=== PATIENT | female | born 1985 | race Caucasian/White ===

== ENCOUNTER → 2020-11-17 13:34 | Observation (INO) ==
[2020-11-17 14:56] LABS: Candida DNA Not Detected (Not Detect); Gardnerella DNA Not Detected (Not Detect); Trichomonas DNA Not Detected (Not Detect)
== END | disposition home or self-care (01) ==
LOC: 1NENULAB
PROVIDERS: ADMIT Obstetrics & Gynecology; ATTEND Obstetrics & Gynecology

== ENCOUNTER 2021-01-17 09:32 | Inpatient (IN) ==
[2021-01-17] MEDS ORDERED: Oxytocin 20 units/ LR 1000 mL 20 UNIT/1,000 ML BAG IVC ONE (09:48)
[2021-01-17] MEDS ORDERED: CeFAZolin 2,000 MG/120 ML BAG IVPB ONE (09:48)
[2021-01-17] MEDS ORDERED: Famotidine 20 MG/2 ML VIAL IVP ONE (09:48)
[2021-01-17] MEDS ORDERED: Metoclopramide 10 MG/2 ML VIAL IVP ONE (09:48)
[2021-01-17] MEDS ORDERED: Ringers Solution, Lactated 1,000 ML IVC ONE (09:48)
[2021-01-17] MEDS ORDERED: Naloxone 0.4 MG/ML INJ IVP PRN (09:50)
[2021-01-17 10:37] LABS: Basophils % 0.2 %; Eosinophils % 0.4 %; Hemoglobin 14.4 g/dL (11.5-15.4); Immature Granulocytes % 0.3 % (0-4); Lymphocytes # 1.7 K/mcL (0.6-4.6); Lymphocytes % 16.7 %; Mean Corpuscular HGB Conc 33.5 g/dL (31.6-35.5); Mean Corpuscular Hemoglobin 31.2 pg (28.0-33.3); Mean Corpuscular Volume 93.1 fL (83.0-100.0); Mean Platelet Volume 10.7 fL (9.4-12.4); Monocytes # 0.4 K/mcL (0.0-1.3); Monocytes % 3.3 %; Neutrophils # 8.3 K/mcL (1.6-8.9); Platelet Count 181 K/mcL (140-400); Red Blood Count 4.62 M/mcL (3.82-4.97); Red Cell Distribution Width 13.5 % (11.5-14.5); Segmented Neutrophils % 79.1 %; White Blood Count 10.5 K/mcL (4.3-11.1)
[2021-01-17 11:10] LABS: Influenza A PCR Negative (Negative); Influenza B PCR Negative (Negative); Resp. Syncytial Virus PCR Negative (Negative)
[2021-01-17] MEDS ORDERED: *HR* Morphine Sulfate/PF 10 MG/10 ML AMPUL ONE (11:37)
[2021-01-17] MEDS ORDERED: Ondansetron 4 MG/2 ML VIAL ONE (11:37)
[2021-01-17] MEDS ORDERED: *HR* FentaNYL (PF) 100 MCG/2 ML VIAL ONE (11:37)
[2021-01-17 11:58] LABS: SARS-CoV-2 by PCR (In House) Negative (Negative)
[2021-01-17 12:02] LABS: Amphetamine Screen,Urine Negative ng/mL (Cutoff=1000); Barbiturate Screen,Urine Negative ng/mL (Cutoff=200); Benzodiazepines Screen,Urine Negative ng/mL (Cutoff=200); Cannabinoid Screen,Urine Negative ng/mL (Cutoff = 50); Cocaine Screen,Urine Negative ng/mL (Cutoff= 300); Opiate Screen,Urine Negative ng/mL (Cutoff=300); Phencyclidine Screen,Urine Negative ng/mL (Cutoff=25)
[2021-01-17] MEDS ORDERED: Acetaminophen IV 1,000 MG/100 ML BAG IVPB ONE (12:38)
[2021-01-17] MEDS ORDERED: Ketorolac 30 MG/ML VIAL ONE (13:05)
[2021-01-17] MEDS ORDERED: *HR* Nalbuphine 10 MG/ML AMPUL IV PRN (14:58)
[2021-01-17] MEDS ORDERED: Simethicone 80 MG TAB.CHEW PO PRN (16:09)
[2021-01-17] MEDS ORDERED: Metoclopramide 10 MG/2 ML VIAL IVP PRN (16:09)
[2021-01-17] MEDS ORDERED: Ondansetron 4 MG/2 ML VIAL IVP PRN (16:09)
[2021-01-17] MEDS ORDERED: Oxytocin 20 units/ LR 1000 mL 20 UNIT/1,000 ML BAG IVC SCH (16:09)
[2021-01-17] MEDS ORDERED: 0.9 % Sodium Chloride 1,000 ML IVC SCH (16:09)
[2021-01-17] MEDS: Ibuprofen 600 MG TABLET PO SCH (17:45)
[2021-01-17] MEDS: Acetaminophen 325 MG TABLET PO SCH (17:45)
[2021-01-17] MEDS: *HR* OxyCODONE Immed Rel 5 MG TABLET PO PRN (23:00)
[2021-01-18] MEDS: Ibuprofen 600 MG TABLET PO SCH ×5 (01:00→23:50)
[2021-01-18] MEDS: Acetaminophen 325 MG TABLET PO SCH ×5 (01:00→23:50)
[2021-01-18] MEDS: *HR* OxyCODONE Immed Rel 5 MG TABLET PO PRN ×4 (03:11→21:38)
[2021-01-18 03:36] LABS: Basophils % 0.2 %; Eosinophils # 0.1 K/mcL (0.0-0.6); Eosinophils % 0.7 %; Hematocrit 34.7 % (35.3-44.9); Immature Granulocytes % 0.3 % (0-4); Lymphocytes # 1.9 K/mcL (0.6-4.6); Lymphocytes % 21.8 %; Mean Corpuscular HGB Conc 32.3 g/dL (31.6-35.5); Mean Corpuscular Hemoglobin 30.7 pg (28.0-33.3); Mean Corpuscular Volume 95.1 fL (83.0-100.0); Mean Platelet Volume 10.7 fL (9.4-12.4); Monocytes # 0.4 K/mcL (0.0-1.3); Monocytes % 4.4 %; Neutrophils # 6.4 K/mcL (1.6-8.9); Platelet Count 153 K/mcL (140-400); Red Blood Count 3.65 M/mcL (3.82-4.97); Red Cell Distribution Width 13.3 % (11.5-14.5); Segmented Neutrophils % 72.6 %; White Blood Count 8.9 K/mcL (4.3-11.1)
[2021-01-18 03:38] LABS: Hemoglobin 11.2 g/dL (11.5-15.4)
[2021-01-18] MEDS ORDERED: Lanolin 7 G OINT...G. TP PRN (09:40)
[2021-01-18] MEDS: Prenatal Vit/FA 1 EACH TABLET PO SCH (09:48)
[2021-01-18] MEDS ORDERED: *HR* OxyCODONE Immed Rel 5 MG TABLET PO PRN (13:11)
[2021-01-19] MEDS: *HR* OxyCODONE Immed Rel 5 MG TABLET PO PRN ×3 (03:34→14:45)
[2021-01-19] MEDS ORDERED: polyethylene glycoL 3350 17 GM POWD.PACK PO PRN (03:39)
[2021-01-19] MEDS: Ibuprofen 600 MG TABLET PO SCH ×2 (06:38→14:45)
[2021-01-19] MEDS: Acetaminophen 325 MG TABLET PO SCH ×2 (06:38→14:46)
[2021-01-19 08:09] VITALS: BP 121/63; PULSE 69; TEMP 97.7; O2SAT 97
[2021-01-19] MEDS: Prenatal Vit/FA 1 EACH TABLET PO SCH (10:08)
== END 2021-01-19 15:36 | disposition home or self-care (01) | DRG 540 ==
LOC: 1NENULAB 09:32 → 1NENUOBS 15:48
PROVIDERS: ADMIT Obstetrics & Gynecology; ATTEND Obstetrics & Gynecology

== ENCOUNTER 2021-09-05 23:16 | Inpatient (IN) ==
[2021-09-06 00:45] LABS: Bilirubin,Urine Negative (Negative); Blood,Urine Negative (Negative); Clarity,Urine Clear (Clear); Color,Urine Light-Yellow (Yellow); Glucose,Urine (UA) Normal (Normal); Ketones,Urine Negative (Negative); Leukocyte Esterase,Urine Negative (Negative); Nitrite,Urine Negative (Negative); PH,Urine 6.5 pH Units (5.0-8.0); Protein,Urine Negative (Neg-Trace); Specific Gravity,Urine 1.018 (1.010-1.025); Urobilinogen,Urine Normal (Normal)
[2021-09-06 00:46] LABS: Basophils # 0.1 K/mcL (0.0-0.2); Basophils % 0.5 %; Eosinophils # 0.2 K/mcL (0.0-0.6); Eosinophils % 1.9 %; Hematocrit 46.2 % (35.3-44.9); Hemoglobin 15.5 g/dL (11.5-15.4); Immature Granulocytes % 0.1 % (0-4); Lymphocytes # 4.5 K/mcL (0.6-4.6); Lymphocytes % 47.1 %; Mean Corpuscular HGB Conc 33.5 g/dL (31.6-35.5); Mean Corpuscular Hemoglobin 32.1 pg (28.0-33.3); Mean Corpuscular Volume 95.7 fL (83.0-100.0); Mean Platelet Volume 9.9 fL (9.4-12.4); Monocytes # 0.5 K/mcL (0.0-1.3); Monocytes % 5.3 %; Neutrophils # 4.3 K/mcL (1.6-8.9); Platelet Count 281 K/mcL (140-400); Red Blood Count 4.83 M/mcL (3.82-4.97); Red Cell Distribution Width 12.5 % (11.5-14.5); Segmented Neutrophils % 45.1 %; White Blood Count 9.6 K/mcL (4.3-11.1)
[2021-09-06 00:54] LABS: Amphetamine Screen,Urine Negative ng/mL (Cutoff=1000); Barbiturate Screen,Urine Negative ng/mL (Cutoff=200); Benzodiazepines Screen,Urine Negative ng/mL (Cutoff=200); Cannabinoid Screen,Urine Negative ng/mL (Cutoff = 50); Cocaine Screen,Urine Negative ng/mL (Cutoff= 300); Opiate Screen,Urine Negative ng/mL (Cutoff=300); Phencyclidine Screen,Urine Negative ng/mL (Cutoff=25)
[2021-09-06 01:02] LABS: Acetaminophen < 10 mcg/mL (10-20); BUN/Creatinine Ratio 19 (6-26); Blood Urea Nitrogen 13 mg/dL (6-20); Calcium 9.9 mg/dL (8.6-10.3); Carbon Dioxide 25 mEq/L (23-29); Chloride 106 mEq/L (98-107); Ethanol < 10 mg/dL (Less than 10); Glucose 78 mg/dL (70-105); Osmolality,Calculated 287 (280-300); Potassium 3.9 mEq/L (3.5-5.1); Salicylate < 2.5 mg/dL (15.0-30.0); Sodium 139 mEq/L (136-145); eGFR For African Americans > 60 (> 60); eGFR For Non-African Americans > 60 (> 60)
[2021-09-06 01:29] LABS: Influenza A PCR Negative (Negative); Influenza B PCR Negative (Negative); Resp. Syncytial Virus PCR Negative (Negative)
[2021-09-06 01:38] LABS: SARS-CoV-2 by PCR (In House) Negative (Negative)
[2021-09-06] MEDS ORDERED: *HR* LORazepam 2 MG/ML VIAL IM PRN (03:46)
[2021-09-06] MEDS ORDERED: traZODone 50 MG TABLET PO PRN (03:46)
[2021-09-06] MEDS ORDERED: *HR* LORazepam 1 MG TABLET PO PRN (03:46)
[2021-09-06] MEDS ORDERED: haloperidoL 5 MG TABLET PO PRN (03:46)
[2021-09-06] MEDS ORDERED: hydrOXYzine pamoate 25 MG CAPSULE PO PRN (03:46)
[2021-09-06] MEDS ORDERED: Haloperidol Lactate 5 MG/ML VIAL IM PRN (03:46)
[2021-09-06] MEDS ORDERED: Mag Hydrox/Al Hydrox/Simeth 30 ML UDC PO PRN (08:11)
[2021-09-06] MEDS ORDERED: MOM Conc 10 ML UD.LIQ PO PRN (08:11)
[2021-09-06 08:52] VITALS: TEMP 97.8
[2021-09-06] MEDS: Nicotine 21 MG PATCH.TD24 TD SCH (10:08)
[2021-09-06] MEDS ORDERED: clonazePAM 0.5 MG TABLET PO PRN (11:50)
[2021-09-06] MEDS: Acetaminophen 325 MG TABLET PO PRN (19:57)
[2021-09-07 09:03] VITALS: BP 103/61; PULSE 90; O2SAT 97
[2021-09-07] MEDS: Nicotine 21 MG PATCH.TD24 TD SCH (09:17)
[2021-09-07] MEDS: Acetaminophen 325 MG TABLET PO PRN (11:08)
== END 2021-09-07 14:20 | disposition home or self-care (01) | DRG 754 ==
LOC: EMEROOARM 23:16 → 1ANU 09-06 03:37
PROVIDERS: ADMIT Psychiatry & Neurology Psychiatry; ATTEND Psychiatry & Neurology Psychiatry